=== PATIENT | male | born 1995 | race Caucasian/White ===

== ENCOUNTER 2016-08-17 20:57 | Emergency (ER) | payer MEDICARE | END 2016-08-17 23:32 | disposition home or self-care (01) | LOC: ER1 20:57 | DX: S09.90XA Unspecified injury of head, initial encounter (principal); Z79.899 Other long term (current) drug therapy; V49.40XA Driver injured in collision with unspecified motor vehicles in traffic accident, initial encounter | CPT/HCPCS: 36415; 70450; 70486; 71250; 72125; 99284; J2405; J7030 ==